=== PATIENT | male | born 1970 | race Caucasian/White ===

== ENCOUNTER → 2022-03-30 11:35 | Outpatient (CLI) | payer OTHER, SELFPAY ==
--- NOTE | ~2022-03-30 | XR_ITS ---
EXAMINATION: XR chest 2V DATE: 03/30/2022 11:52 INDICATION: Chronic cough post COVID infection 2 months prior TECHNIQUE: PA and lateral views of the chest were obtained. COMPARISON: None FINDINGS: The lungs are clear with no focal airspace opacities, pulmonary edema, pleural effusion or pneumothor ax. The cardiomediastinal silhouette is normal. Visualized bones and soft tissues are unremarkable. C holecystectomy clips in the right upper quadrant. IMPRESSION: 1. No acute cardiopulmonary disease. Reviewed, dictated and finalized at location B.
== END ==
PROVIDERS: PCP Family Medicine; Visit Provider Pediatrics
DX: R09.89 Other specified symptoms and signs involving the circulatory and respiratory systems (principal); R09.1 Pleurisy; Z86.16 Personal history of COVID-19
CPT/HCPCS: 71046